=== PATIENT | female | born 1995 | race Caucasian/White ===

== ENCOUNTER 2022-11-29 17:17 | Emergency (ER) | payer OTHER, BC ==
[~2022-11-29] VITALS: Ht 154.9 cm; Wt 61.2 kg
[2022-11-29 17:23] VITALS: BP_SYST 130
--- NOTE | 2022-11-29 17:27 | NUR ---
Patient triaged and placed in waiting room. VSS and patient appears in no acute distress at this time. Accompanied by spouse, awaiting available bed, and MD notified of need for MSE.
--- NOTE | 2022-11-29 18:16 | NUR ---
Dr. Em at bedside examining the patient per documentation.
--- NOTE | 2022-11-29 18:49 | NUR ---
ASSISTING PRIMARY NURSE. hcg NEGATIVE.
[2022-11-29] MEDS ORDERED: NAPR-690 PO (19:04)
[2022-11-29 19:24] VITALS: BP_SYST 132
--- NOTE | 2022-11-29 19:26 | NUR ---
Patient given written and verbal discharge instructions and verbalizes understanding. ER MD discussed with patient the results and treatment provided. Patient in stable condition. ID arm band removed. Rx of given by MD. Patient educated on pain management and to follow up with PMD. Pain Scale . Opportunity for questions provided and answered. Medication side effect fact sheet provided. Discharged by Maria Antonia BUENROSTRO.
== END 2022-11-29 19:24 | disposition home or self-care (01) ==
LOC: SED 17:17
DX: S13.4XXA Sprain of ligaments of cervical spine, initial encounter (principal); S33.5XXA Sprain of ligaments of lumbar spine, initial encounter; Z79.899 Other long term (current) drug therapy; V89.2XXA Person injured in unspecified motor-vehicle accident, traffic, initial encounter; Y93.89 Activity, other specified; Y92.89 Other specified places as the place of occurrence of the external cause; Y99.8 Other external cause status
CPT/HCPCS: 72040-TC; 72100-TC; 99284

== ENCOUNTER 2022-12-06 16:24 | Emergency (ER) | payer BC, OTHER ==
[~2022-12-06] VITALS: Ht 154.9 cm; Wt 59.0 kg
[~2022-12-06 16:24] MED LIST: NAPR-690 PO
[2022-12-06 16:53] VITALS: BP_SYST 125
== END 2022-12-06 19:30 | disposition left against medical advice (07) ==
LOC: SED 16:42
DX: R10.9 Unspecified abdominal pain (principal); Z53.21 Procedure and treatment not carried out due to patient leaving prior to being seen by health care provider
CPT/HCPCS: 99281